=== PATIENT | female | born 1945 | race Caucasian/White ===

== ENCOUNTER → 2016-11-17 | Outpatient (CLI) | payer OTHER ==
[~2016-11-17] MED LIST: ATEN-173 PO; CALC600T9 PO; CALCTAB5 PO; CHOL1CAP57 PO; HYDR0.5T PO; IBUP-1428 PO; MOME200A INH; OMEP40CA41 PO; PRD/1 PO; PRED-301 PO; PRLSR20 PO; VITA100C2 PO; VITA100C4 PO; ZNTT/150 PO
--- NOTE | 2016-11-20 14:25 | MAMMOGRAPHY REPORT ---
BILATERAL DIGITAL SCREENING MAMMOGRAM WITH CAD: 11/17/2016 CLINICAL HISTORY: Routine screening. Patient has no complaints. TECHNIQUE: Current study was also evaluated with a Computer Aided Detection (CAD) system. Bilatera l CC and MLO views were obtained. COMPARISON: Comparison is made to exams dated: 10/19/2015 mammogram, 10/14/2014 mammogram, 10/13/2013 ma mmogram, 09/24/2012 mammogram, 09/21/2011 mammogram, and 09/08/2010 mammogram - [facility] nt. BREAST COMPOSITION: There are scattered areas of fibroglandular density in both breasts. FINDINGS: No suspicious masses, calcifications, or areas of architectural distortion are noted in e ither breast. There has been no significant interval change compared to prior exams. IMPRESSION: ACR BI-RADS CATEGORY 1: NEGATIVE There is no mammographic evidence of malignancy. A 1 year screening mammogram is recommended. The p atient will receive written notification of the results. Approximately 10% of breast cancers are not detected with mammography. A negative mammographic repor t should not delay biopsy if a clinically suggestive mass is present. Radha Szymanski M.D. ah/:11/17/2016 15:39:25 Regulation Supervisor: Hollis STOVALL(Linda)(M), [facility] letter sent: Normal 1/2 BI-RADS Code: ACR BI-RADS Category 1: Negative
== END | disposition home or self-care (01) ==
LOC: C.MAMM 13:34
PROVIDERS: ATTEND Family Medicine
DX: Z12.31 Encounter for screening mammogram for malignant neoplasm of breast (principal)

== ENCOUNTER → 2017-03-27 | Outpatient (CLI) | payer OTHER ==
[~2017-03-27] MED LIST changes: -CALC600T9 PO; -OMEP40CA41 PO; -VITA100C2 PO
--- NOTE | 2017-03-27 14:38 | DIAGNOSTIC IMAGING REPORT ---
(CHEST) THORAX WITHOUT CLINICAL HISTORY: C34.90 Adenocarcinoma of lung COMPARISON STUDY: 02/03/2016 CT DOSE: 188.00 mGy.cm TECHNIQUE: CT of the thorax was performed from the thoracic inlet to the lung bases. Images are reviewed in the axial, sagittal, and coronal planes. IV contrast was not administered for this examination. A dose lowering technique was utilized adhering to the principles of ALARA. FINDINGS: Thyroid: Imaged portions of the thyroid gland are normal in appearance. Thoracic aorta: The thoracic aorta is normal in course and caliber, noting standard 3 vessel arch anatomy. Heart: There are mild coronary artery calcifications. Lungs and pleural spaces: 6 no pleural effusions are visualized. There is pulmonary emphysema. There is a persistent 7 mm right middle lobe pulmonary nodule. There is a new 5 mm left apical pulmonary nodule as visualized in image #27/301. There is an enlarging irregularly marginated solid 13 mm left upper lobe pulmonary nodule as visualized on image #49/31. There is a persistent area of architectural distortion within the left upper lobe demonstrating a 13 mm central nodule which appears slightly larger on the prior study. There is a new 11 mm left upper lobe pulmonary nodule as visualized in image #78/301. There is a 7 mm partially solid and groundglass left upper lobe there is a new 9 mm left upper lobe pulmonary nodule as visualized on image #99/301. There is a new 4 mm left upper lobe point nodule as visualized in image #99/301. No pleural effusions are visualized. Pulmonary nodule as visualized in image #84/301. Mediastinum: There is no pathologic adenopathy by size criteria. Geeta: There is no evidence of pathologic hilar activity given the limitations of a noncontrast study Axilla: Clear. Upper abdomen: Partially visualized upper abdominal viscera is within normal limits. Skeletal structures: There are no lytic or blastic osseous lesions. IMPRESSION: 1. Multiple new and enlarging left upper lobe pulmonary nodules suspicious for multifocal neoplasm/metastatic disease 2. Indeterminate 7 mm right middle lobe pulmonary nodule. Well unchanged in overall size, there has been equivocal slight interval increase in the solid component 3. Emphysema Electronically signed by: Ryland Portillo M.D. 03/27/2017 2:37 PM Dictated Date/Time: 03/27/2017 2:27 PM
== END | disposition home or self-care (01) ==
LOC: C.CTS 14:10
PROVIDERS: ATTEND Internal Medicine Critical Care Medicine
DX: C34.90 Malignant neoplasm of unspecified part of unspecified bronchus or lung (principal); R91.8 Other nonspecific abnormal finding of lung field; J43.9 Emphysema, unspecified

== ENCOUNTER → 2017-04-09 | Outpatient (CLI) | payer OTHER ==
--- NOTE | 2017-04-09 13:04 | DIAGNOSTIC IMAGING REPORT ---
PET/CT HISTORY: LUNG CANCER TECHNIQUE: PET/CT was performed from the base of the skull through the pelvis following the intravenous administration of 9.9 mCi of F18-FDG. Non-contrast CT imaging was performed over the same range without breath-hold for attenuation correction of PET images and anatomic correlation, but not for primary interpretation as it is not of standard diagnostic quality. CT DOSE: COMPARISON: Chest CT 03/27/2017. PET CT 03/08/2016. FINDINGS: HEAD AND NECK: There is no FDG-avid disease or significant lymphadenopathy in the imaged portions of the head and the neck. CHEST: Multiple new and enlarging FDG avid nodules within the left upper lobe consistent with metastatic disease. There are proximal tendon nodules within the left upper lobe. Dominant nodule measures 12 mm and demonstrates an SUV max of 4.8. No FDG avid or enlarged mediastinal or hilar lymph nodes. There is again noted an irregular 7 mm groundglass nodule within the right middle lobe. This may demonstrate faint FDG uptake. The appearance alone is highly suspicious for a malignancy. Emphysema. ABDOMEN/PELVIS: Below the diaphragm, tracer is distributed physiologically in the gastrointestinal and genitourinary tracts. There is no significant lymphadenopathy and no FDG-avid disease. MUSCULOSKELETAL: There is no FDG-avid or destructive bone lesion. IMPRESSION: 1. Multiple new and enlarging FDG avid pulmonary nodules seen within the left upper lobe consistent with metastatic disease. Dominant nodule measures 12 mm. 2. There is again noted an irregular 7 mm groundglass nodule within the right middle lobe. This may demonstrate faint FDG uptake. The appearance alone is highly suspicious for a low-grade malignancy. 3. Emphysema. Electronically signed by: Murray Reese M.D. 04/09/2017 1:03 PM Dictated Date/Time: 04/09/2017 12:45 PM
== END | disposition home or self-care (01) ==
LOC: C.PET 09:39
PROVIDERS: ATTEND Internal Medicine Critical Care Medicine
DX: R91.8 Other nonspecific abnormal finding of lung field (principal); C34.90 Malignant neoplasm of unspecified part of unspecified bronchus or lung; J43.9 Emphysema, unspecified

== ENCOUNTER → 2017-05-04 | Outpatient (CLI) | payer OTHER ==
[~2017-05-04] MED LIST changes: +CALC600T9 PO; +OMEP40CA41 PO; +VITA100C2 PO
--- NOTE | 2017-05-04 09:53 | DIAGNOSTIC IMAGING REPORT ---
CT SCAN OF THE CHEST WITHOUT IV CONTRAST CLINICAL HISTORY: Lung cancer. COMPARISON STUDY: Chest CT scans dated 03/27/2017 and 05/04/1714. PET/CT dated 04/09/2017. TECHNIQUE: CT scan of the thorax was performed from the thoracic inlet to the upper abdomen. Images are reviewed in the axial, sagittal, and coronal planes. IV contrast was not administered for this examination as per the referring clinician. The examination is performed using the navigational protocol. A dose lowering technique was utilized adhering to the principles of ALARA. CT DOSE: 215.33 mGy.cm FINDINGS: Thyroid: Imaged portions of the thyroid gland are normal in size and attenuation. Thoracic aorta: There is mild atherosclerotic calcification of the thoracic aorta, which is normal in caliber and demonstrates standard 3-vessel arch anatomy. Heart: The heart is normal in size and without pericardial effusion. There are coronary artery calcifications. Lungs and pleural spaces: Advanced emphysema is identified. There is no lobar consolidation or pleural effusion. The trachea and central airways are clear. There is a spiculated lesion with surrounding groundglass change in the left upper lobe seen on image #68. This measures 2.4 x 1.3 cm. Surrounding scarring is identified and this may represent lymphangitic spread of tumor versus post treatment change. A 1.7 cm groundglass focus is seen in the left upper lobe on image #91. 4 additional spiculated nodules are seen in the left upper lobe on images #56, #83, #97, and #99. These measure up to 1.3 cm. The nodule seen on image #97 demonstrates central cavitation. An indeterminant 7 mm nodular density seen at the left apex on image #32. An 8 mm spiculated nodule is seen in the right middle lobe along the major fissure on image #172. A 3 mm right upper lobe nodule is seen image #79. A calcified granuloma is identified in the left upper lobe along the major fissure. Mediastinum: There is no mediastinal lymphadenopathy. Geeta: Not well assessed without IV contrast. Axillae: There is no axillary lymphadenopathy. Upper abdomen: Partially visualized upper abdominal viscera is within normal limits. No adrenal lesion is seen. Skeletal structures: The skeletal structures are osteopenic. Advanced degenerative change with anterolisthesis is seen at L3-L4. No lytic or blastic bony lesions are seen. IMPRESSION: 1. Advanced emphysema. No lobar consolidation or pleural effusion is identified. 2. Again seen is a spiculated nodule in the left upper lobe. This has mildly increased in size from 03/27/2017. Surrounding scarring and interstitial thickening could represent lymphangitic spread of tumor or treatment related change. 3. There are least 6 additional left upper lobe lesions identified as detailed above, as well as a right middle lobe lesion. Several of these are spiculated in appearance, and these are unchanged to minimally increased in size from 03/27/2017. These are highly concerning for multifocal pulmonary metastatic disease. 4. No mediastinal lymphadenopathy is identified. Electronically signed by: Librado Jacobs M.D. 05/04/2017 9:52 AM Dictated Date/Time: 05/04/2017 9:38 AM
== END | disposition home or self-care (01) ==
LOC: C.CTS 09:18
PROVIDERS: ATTEND Internal Medicine Critical Care Medicine
DX: C34.90 Malignant neoplasm of unspecified part of unspecified bronchus or lung (principal); R91.8 Other nonspecific abnormal finding of lung field; J86.9 Pyothorax without fistula

== ENCOUNTER 2017-05-08 07:54 | Day surgery (SDC) | payer OTHER ==
[2017-05-04 10:13] VITALS: BMI 21.0
[2017-05-04 10:22] LABS: BASO % 0.4 %; BASO ABS # 0.06 K/uL (0-0.2); COMPLETE YES; HEMATOCRIT 43.1 % (37-47); IG% 0.8 %; LYMPH % 10.3 %; MEAN CELL VOLUME 92.1 fL (80-100); MEAN CORPUSCULAR HEMOGLOBIN 30.3 pg (25-34); MEAN CORPUSCULAR HGB CONC 32.9 g/dl (32-36); MEAN PLATELET VOLUME 10.7 fL (7.4-10.4); MONO % 8.4 %; NEUT % 79.1 %; PLATELET COUNT 253 K/uL (130-400); RED BLOOD COUNT 4.68 M/uL (4.2-5.4); WHITE BLOOD COUNT 13.62 K/uL (4.8-10.8)
[2017-05-04 10:33] LABS: PROTHROMBIN TIME (PATIENT) 10.3 SECONDS (9.0-12.0)
--- NOTE | 2017-05-04 11:08 | PAT Medication Instructions ---
Service Date May 04, 2017. Current Home Medication List Atenolol (Tenormin), 25 MG PO BID Calcium Carbonate-Vitamin D (Calcium + D), 1 TAB PO BID Ibuprofen (Motrin), 800 MG PO TID Omeprazole (Prilosec), 40 MG PO QAM Prednisone (Prednisone), 5 MG PO QAM Prednisone (Prednisone), 2 MG PO QPM Ranitidine (Zantac), 150 MG PO AMHS Vitamin E (Vitamin E 100 Iu), 100 INTER.UNIT PO QPM Medication Instructions For Your Scheduled Surgery - Check with surgeon for instructions: Ibuprofen (Motrin), 800 MG PO TID - Hold the following medications starting 05/04/17: Vitamin E (Vitamin E 100 Iu), 100 INTER.UNIT PO QPM - Hold the following medications the morning of surgery: Ranitidine (Zantac), 150 MG PO AMHS Calcium Carbonate-Vitamin D (Calcium + D), 1 TAB PO BID - Take the following medications the morning of surgery with a sip of water: Atenolol (Tenormin), 25 MG PO BID Omeprazole (Prilosec), 40 MG PO QAM Prednisone (Prednisone), 5 MG PO QAM Prednisone (Prednisone), 2 MG PO QPM - Take the following medications as scheduled the night before surgery: Ranitidine (Zantac), 150 MG PO AMHS Calcium Carbonate-Vitamin D (Calcium + D), 1 TAB PO BID Atenolol (Tenormin), 25 MG PO BID If you have any questions please call us at [phone] or [phone] or [phone]
--- NOTE | 2017-05-04 11:47 | DIAGNOSTIC IMAGING REPORT ---
CERVICAL SPINE 3 VIEWS HISTORY: PREOP, RHEUMATOID ARTHRITIS COMPARISON: None. FINDINGS: The cervical spine is visualized from C1 through the superior endplate of T1. There is no fracture. There is 1.5 mm of anterolisthesis of C3 on C4 and 1 mm of anterolisthesis of C4-C5 on the neutral view. This remains unchanged during extension. However, these areas progressed to 2.7 mm on the flexion view. Disc spaces are preserved. Prevertebral soft tissues and the atlantodens interval are intact. IMPRESSION: Anterolisthesis of C3 on C4 and C4 on C5 as described above which progresses during flexion. Electronically signed by: Murray Reese M.D. 05/04/2017 11:45 AM Dictated Date/Time: 05/04/2017 11:43 AM
[2017-05-04 12:41] LABS: BUN/CREATININE RATIO 16.3 (10-20); CALCIUM 9.5 mg/dl (8.5-10.1); CREATININE 1.02 mg/dl (0.60-1.20); POTASSIUM 4.5 mmol/L (3.5-5.1)
[~2017-05-08] VITALS: Ht 157.5 cm; Wt 52.2 kg
[~2017-05-08 07:54] MED LIST changes: -CALCTAB5 PO; -CHOL1CAP57 PO; -HYDR0.5T PO; -MOME200A INH; -PRLSR20 PO; -VITA100C4 PO
[2017-05-08 08:18] VITALS: BP 136/83; PULSE 69; TEMP 36.8; O2SAT 97; Ht 157.5 cm; Wt 52.2 kg
[2017-05-08] MEDS ORDERED: DEXAMETHASONE SOD INJ 4 MG/ML VIAL ONE ×2 (08:38→10:14)
[2017-05-08] MEDS ORDERED: ONDANSETRON INJ 2 MG/ML 2 ML VIAL ONE ×2 (08:39→10:14)
[2017-05-08] MEDS ORDERED: LIDOCAINE HCL 2% 2 ML VIAL (20MG/ML) ONE (08:39)
[2017-05-08] MEDS ORDERED: FENTANYL CITRATE INJ 50 MCG/1 ML 2 ML VIAL ONE (08:39)
[2017-05-08] MEDS ORDERED: PROPOFOL IV EMULSION 10 MG/ML 20 ML VIAL IV ONE (08:39)
[2017-05-08] MEDS ORDERED: MIDAZOLAM HCL 1 MG/ML 2ML VIAL ONE (08:39)
--- NOTE | 2017-05-08 09:11 | History and Physical ---
History & Physical Date of Service May 08, 2017. History & Physical Reason for EBUS w/ENB: Left upper lobe and right middle lobe PET avid, growing nodules in the setting of history of adenocarcinoma of the lung History of present illness: Patient is a 71-year-old female with adenocarcinoma s/p SBRT treatment who initially was noting pain in 2013 and was found to have a 1 centimeter ground- glass nodule in the left upper lobe at that time. She underwent electro navigational bronchoscopy with biopsy on 10/24/2013, but the procedure was ultimately nondiagnostic. Repeat CT scan then showed mild enlargement of the left upper lobe nodule and repeat navigational bronchoscopy was completed on with pathology noting adenocarcinoma. The patient did undergo SBRT treatment for definitive care. The patient had repeat PET scan completed on which showed no demonstrated full FDG avidity, and therefore was thought to have good response to treatment. Repeat CT scan on 03/27/2017 showed enlarging 13 mm solid nodule in left upper lobe along with multiple other small, new solid and ground-glass nodules. Therefore, it was recommended that the patient have repeat PET scan to evaluate these nodules once again. She was noted to have PET avid lesions in the left upper lobe as well as the right middle lobe and mediastinal and hilar adenopathy with SUV uptake. It was recommended that the patient have endobronchial ultrasound with electromagnetic navigational bronchoscopy for evaluation of possible recurrent adenocarcinoma of the lung. Review of systems: Denies fever, chills, chest pain, productive cough, or pleurisy. Active Problems Abnormal CT scan, lung (R91.8) Abnormal electrocardiogram (R94.31) Acute bronchitis with bronchospasm (J20.9) Adenocarcinoma of lung (C34.90) Ankle joint pain (M25.579) Atopic dermatitis (L20.9) Backache (M54.9) Cerumen impaction (H61.20) Chronic obstructive pulmonary disease (J44.9) Chronic reflux esophagitis (K21.0) Contact dermatitis (L25.9) Fatigue (R53.83) Hearing loss (H91.90) High risk medication use (Z79.899) Hypertension (I10) Joint pain, elbow (M25.529) Leg swelling (M79.89) Leiomyoma of uterus (D25.9) Lower back pain (M54.5) Nicotine dependence (F17.200) Olecranon bursitis of right elbow (M70.21) Osteoarthritis of hip (M16.9) 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) Osteopenia (M85.80) Pain in foot (M79.673) Raynauds phenomenon (I73.00) Rheumatoid arthritis (M06.9) Sacroiliitis (M46.1) Tinnitus of right ear (H93.11) Tubular adenoma of colon (D12.6) Urinary symptom or sign (R39.9) Urinary tract infection (N39.0) Vaginal candidiasis (B37.3) Vaginitis (N76.0) Vulvar cyst (N90.7) Past Medical History History of Cat bite of hand (S61.459A,W55.01XA) History of Cellulitis Of The Right Fifth Toe History of Sprain Of Right Fifth Toe MTP Joint Surgical History History of Bunion Correct W/ Metatarsal Osteotomy Lalo-Siri Proc History of Knee Arthroscopy (Therapeutic) History of Neuroplasty Decompression Median Nerve At Carpal Tunnel History of Oral Surgery Tooth Extraction History of Tonsillectomy History of Total Abdominal Hysterectomy With Removal Of Both Ovaries History of Total Hip Replacement Family History Family history of Alzheimer Disease Family history of Lung Cancer Family history of Colon Cancer Social History Denied: History of Alcohol Use (History) Current every day smoker (F17.200) Denied: History of Drug Use Marital History - Smokes cigarettes (F17.210) Tobacco Use Uses Safety Equipment - Seatbelts Current Meds 1. Natural Vitamin E 200 UNIT Oral Capsule; TAKE 1 CAPSULE DAILY 2. Omeprazole 20 MG Oral Capsule Delayed Release; TAKE 1 CAPSULE BY MOUTH ONE TIME DAILY 3. RaNITidine HCl - 150 MG Oral Tablet; TAKE 1 TABLET BY MOUTH TWO TIMES DAILY 4. Atenolol 25 MG Oral Tablet; TAKE ONE TABLET BY MOUTH TWICE A DAY 5. Caltrate 600+D TABS; Take 1 tablet twice daily 6. Vitamin D3 1000 UNIT Oral Tablet; TAKE 1 TABLET DAILY 7. Ibuprofen 800 MG Oral Tablet; TAKE 1 TABLET 3 times daily 8. PredniSONE 1 MG Oral Tablet; TAKE TWO TABLETS BY MOUTH EVERY EVENING 9. PredniSONE 5 MG Oral Tablet; TAKE ONE TABLET BY MOUTH ONCE DAILY in morning Allergies Augmentin TABS Codeine Derivatives Hydromet SYRP Physical exam: Constitutional General appearance: Abnormal. ~Thin appearing female. KnmqeBvcaznb7Udd NoejiFqdysip7Auqeu WvxqlOulrbvr1Btv IupczMfoavvr17Qdqfo Eyes Conjunctiva and lids: No swelling, erythema or discharge. Pupils and irises: Equal, round and reactive to light. DhdqdHjlbxlr25Luz AfpmfQpukkbl31Zhuwk RpswmMcahlrq61Bjm SbijcWpojays60Oplng GnompUghjuyh56Laa SyvmpPuoedze0Ogwkq Ears, Nose, Mouth, and Throat External inspection of ears and nose: Normal. Oropharynx: Normal with no erythema, edema, exudate or lesions. HwlvrMtiekfv8Wbi GrfedGtjzukk7Koklt EiwmhLacesbv3Ydd SotkoJdkpeyl0Ozyos MvcipNukdfob7Uxd TeavgVvnwulc71Jyjzj ZhxspQqadbhh04Owc KwskwTixwvlj95Cwdtw Pulmonary Respiratory effort: No increased work of breathing or signs of respiratory distress. Auscultation of lungs: Clear to auscultation. IjddzTfqacgl43Qxp UnrpyFaihbpu71Keyos DcxyqMwgntuk03Rdd TntmzOfbupeo79Ynkdy MttsdGiwpric28Urw VhqkkKupsqlv18Btogg Cardiovascular Auscultation of heart: Normal rate and rhythm, normal S1 and S2, without murmurs. Examination of extremities for edema and/or varicosities: Normal. CgeubHifzjqb17Ozd DkeosHypijxh65Sywwa TwlunRpjympl06Enf JwzsuOqavkbr38Ythrm GuikdEabrkdt21Ozl JnuhvGkyhrhu55Tnylg NpgrxOyarsry96Rag EoqcoFtefuze04Fphjk Musculoskeletal Gait and station: Normal. Digits and nails: Normal without clubbing or cyanosis. Inspection/palpation of joints, bones, and muscles: Normal. VuresGjzoewn04Wak KvsszDloqfzn51Ssaiw SojjzWbhhhrm91Wdt JontfMnrighm13Zkxnp EnkchHhffnde41Ixq DuclcPjsooos66Xcnbz RdghyYbtxfjx87Vfy FrvmgVkzsirx04Trptj Skin Skin and subcutaneous tissue: Normal without rashes or lesions. VtynwUjitksu41Gao OmbhxPggvgkd60Jjqmy NtyvjKhdrpgo56Hnz AylgrAemlbgp59Exwsv FpxfoTwyrqoe77Nhc FjoacAbamwbv99Eawqt Neurologic Cranial nerves: Cranial nerves 2-12 intact. Sensation: No sensory loss. YryzjZyfshqr56Ujl PdpnyEzobnki15Boaio RdwmiFzlwxcm27Kxz VmrnxQwsqlvt12Effbm XjdhbSlbnkjh58Klt PwxdcNlyrdcl64Ugokb UfmtsBcrhlma87Fos JrdjtKuxxlsg53Birqd Psychiatric Orientation to person, place, and time: Normal. Mood and affect: Normal. CcwzbGrmkldx62Qkj ExrfqLgjqqyd23Lbdai MdxlgYdjucoe75Tzy KvlxbGghpcjh25Maqdl GvfexXixlhkz68Xcm CompleteMulti-SystemExam (Brief)[id number] Assessment and plan: Patient with FDG avid left upper lobe nodules along with a right middle lobe nodule and mediastinal/hilar adenopathy. She is planned to have EBUS w/ENB today.
[2017-05-08] MEDS ORDERED: FENTANYL CITRATE INJ 50 MCG/1 ML 2 ML VIAL IV PRN (09:15)
[2017-05-08] MEDS ORDERED: EpHEDrine SULFATE INJ 50 MG/ML AMP IV PRN (09:15)
[2017-05-08] MEDS ORDERED: ONDANSETRON INJ 2 MG/ML 2 ML VIAL IV PRN (09:15)
[2017-05-08] MEDS ORDERED: ATROPINE SULFATE 0.1 MG/ML 5ML SYR IV PRN (09:15)
--- NOTE | 2017-05-08 09:36 | History & Physical Bridge Note ---
H&P Re-Evaluation Bridge Note: I have examined the patient, reviewed the History & Physical and in the interval since the performance of the History & Physical I have noted the following changes of clinical significance: No changes noted
[2017-05-08] MEDS ORDERED: EpHEDrine SULFATE 50MG/5ML SYR ONE (10:14)
[2017-05-08] MEDS ORDERED: GLYCOPYRROLATE INJ 0.2 MG/ML VIAL ONE (10:14)
--- NOTE | 2017-05-08 11:45 | DIAGNOSTIC IMAGING REPORT ---
CHEST 1 VIEW FRONTAL CLINICAL HISTORY: Navigational bronchoscopy. Left upper lobe pulmonary mass COMPARISON STUDY: Chest CT dated 05/04/2017 FINDINGS: 2 intraoperative fluoroscopic spot images are provided for interpretation. 3 minutes and 33 seconds of fluoroscopic time was utilized. Fluoroscopic spot images demonstrate a left upper lobe bronchoscopic catheter. IMPRESSION: Fluoroscopic spot images obtained during navigational bronchoscopy area Electronically signed by: Ryland Portillo M.D. 05/08/2017 11:44 AM Dictated Date/Time: 05/08/2017 11:42 AM
--- NOTE | 2017-05-08 11:46 | Bronchoscopy Procedure Note ---
Bronchoscopy Procedure Note Procedure: Flexible-Bronchoscopy, EBUS, Tbbx, GETA Consent: Obtained through the patient placed into the chart Pre-Procedural Dx: Lung Nodule Post-Procedural Dx: Lung Ca (possible Adeno-Ca) Analgesia: GETA Sedation: GETA Procedure: The Olympus video bronchoscope and EBUS scope were used for this procedure Initially the flexible bronchoscope was used for evaluation of the airways. The LMA tube was well positioned in the glottic region Trachea: Visualized portion of the trachea was anatomically within normal limits Ciara: Anatomically within normal limits Right bronchial tree: Right mainstem bronchus: Anatomically within normal limits Right upper lobe: Anatomically within normal limits Bronchus intermedius: Anatomically within normal limits Right middle lobe: Anatomically within normal limits Right lower lobe: Anatomically within normal limits Findings: No significant findings noted Left bronchial tree: Left mainstem bronchus: Anatomically within normal limits Left upper lobe: Anatomically within normal limits Lingula: Anatomically within normal limits Left lower lobe: Anatomically within normal limits Findings: No significant findings noted EBUS/SHYAM: Tbbx Robel Stations: 7: # of passes 3 LUIS FERNANDO: FNA: x5 Cytology [place]: x3 BAL: Tbbx: x5 EBL: 3cc Complications: None Follow-up: [facility]
--- NOTE | 2017-05-08 12:24 | Anesthesiology Progress Note ---
Anesthesia Post Op Note Date & Time May 08, 2017 at 12:24 Vital Signs Pain Intensity: 0 Vital Signs Past 12 Hours Date Time Temp Pulse Resp B/P (MAP) Pulse Ox O2 Delivery O2 Flow Rate FiO2 05/08/17 12:20 67 12 126/90 95 05/08/17 12:10 36.3 67 12 127/87 100 Oxymask 10 05/08/17 12:00 67 12 108/63 100 Oxymask 10 05/08/17 11:50 70 12 94/60 99 Oxymask 10 05/08/17 11:40 36 70 12 94/56 98 Oxymask 10 05/08/17 08:18 36.8 69 20 136/83 (100) 97 Room Air Notes Mental Status: alert / awake / arousable, participated in evaluation Pt Amnestic to Procedure: Yes Nausea / Vomiting: adequately controlled Pain: adequately controlled Airway Patency, RR, SpO2: stable & adequate BP & HR: stable & adequate Hydration State: stable & adequate Anesthetic Complications: no major complications apparent
--- NOTE | 2017-05-08 12:29 | History & Physical Bridge Note ---
H&P Re-Evaluation Bridge Note: I have examined the patient, reviewed the History & Physical and in the interval since the performance of the History & Physical I have noted the following changes of clinical significance: At this time we will not perform the thoracentesis as the patient has multiple septations but will move forward with the Rosie/ENB evaluation for staging and tumor marker acquisition.
[2017-05-08 12:39] VITALS: BP 123/75; PULSE 72; TEMP 36.4; O2SAT 99
[2017-05-08 13:10] VITALS: BP 134/82; PULSE 67; O2SAT 96
[2017-05-08 13:40] VITALS: BP 129/82; PULSE 64; O2SAT 95
--- NOTE | 2017-05-08 13:52 | Discharge Instructions ---
Discharge Instructions Date of Service May 08, 2017. Admission Reason for Admission: Lung Adenocarcinoma, Abnormal Ct Of Lung Discharge Discharge Diagnosis / Problem: Lung adenocarcinoma, Abnormal CT Lung Discharge Goals Goal(s): Diagnostic testing Activity Recommendations Activity Limitations: resume your previous activity . Instructions / Follow-Up Instructions / Follow[place]Up [place] [facility] Current Hospital Diet Patient's current hospital diet: Discharge Diet Recommended Diet: Regular Diet Procedures Procedures Performed: Endobronchial Ultrasound Guided Biopsy; Radial; Electromagnetic Navigational Bronchoscopy; Transbronchial Fine Needle Aspiration; Bronchial Lavage; Cytology brushing Pending Studies Studies pending at discharge: yes List of pending studies: Chest X-Ray Medical Emergencies . Who to Call and When: Medical Emergencies: If at any time you feel your situation is an emergency, please call 911 immediately. . Non-Emergent Contact Non-Emergency issues call your: Primary Care Provider . . "Provider Documentation" section prepared by Itzel Russell. . VTE Core Measure Inpt VTE Proph given/why not?: Treatment not indicated
--- NOTE | 2017-05-08 14:48 | DIAGNOSTIC IMAGING REPORT ---
CHEST ONE VIEW PORTABLE HISTORY: 71 years-old Female s/p EBUS w/ENB status post endobronchial ultrasound COMPARISON: Chest CT 05/04/2017 TECHNIQUE: Portable upright AP view of the chest FINDINGS: Background emphysema with nodular masslike opacities of the left upper lobe measuring up to 1.8 cm redemonstrated. Previously described lingular nodules are not well seen. No postprocedural pneumothorax. Bones are grossly intact. IMPRESSION: 1. No pneumothorax. 2. Emphysema with nodular masslike opacities of the left lung redemonstrated. The above report was generated using voice recognition software. It may contain grammatical, syntax or spelling errors. Electronically signed by: Aleksandr Flower M.D. 05/08/2017 2:47 PM Dictated Date/Time: 05/08/2017 2:33 PM
== END 2017-05-08 14:36 | disposition home or self-care (01) ==
LOC: C.ACU 07:54
PROVIDERS: ATTEND Internal Medicine Critical Care Medicine
DX: C34.12 Malignant neoplasm of upper lobe, left bronchus or lung (principal); J44.9 Chronic obstructive pulmonary disease, unspecified; K21.0 Gastro-esophageal reflux disease with esophagitis; M06.9 Rheumatoid arthritis, unspecified; M19.90 Unspecified osteoarthritis, unspecified site; I10 Essential (primary) hypertension; I73.00 Raynaud's syndrome without gangrene; F17.200 Nicotine dependence, unspecified, uncomplicated; Z68.21 Body mass index [BMI] 21.0-21.9, adult; Z96.641 Presence of right artificial hip joint; Z90.710 Acquired absence of both cervix and uterus; Z79.899 Other long term (current) drug therapy; Z98.890 Other specified postprocedural states; Z98.818 Other dental procedure status; Z90.89 Acquired absence of other organs; Z88.5 Allergy status to narcotic agent; Z88.1 Allergy status to other antibiotic agents; Z80.1 Family history of malignant neoplasm of trachea, bronchus and lung; Z80.0 Family history of malignant neoplasm of digestive organs; Z82.0 Family history of epilepsy and other diseases of the nervous system

== ENCOUNTER → 2017-11-21 | Outpatient (CLI) | payer OTHER ==
[~2017-11-21] MED LIST changes: +RANI150T85 PO; -ZNTT/150 PO
--- NOTE | 2017-11-21 15:05 | MAMMOGRAPHY REPORT ---
BILATERAL DIGITAL SCREENING MAMMOGRAM TOMOSYNTHESIS WITH CAD: 11/21/2017 CLINICAL HISTORY: Routine screening. Patient has no complaints. TECHNIQUE: Breast tomosynthesis in addition to standard 2D mammography was performed. Current study was also evaluated with a Computer Aided Detection (CAD) system. COMPARISON: Comparison is made to exams dated: 11/17/2016 mammogram, 10/19/2015 mammogram, 10/14/2014 mamm ogram, 10/13/2013 mammogram, 09/24/2012 mammogram, and 09/21/2011 mammogram - [facility] BREAST COMPOSITION: There are scattered areas of fibroglandular density in both breasts. FINDINGS: No suspicious masses, calcifications, or areas of architectural distortion are noted in ei ther breast. There has been no significant interval change compared to prior exams. IMPRESSION: ACR BI-RADS CATEGORY 1: NEGATIVE There is no mammographic evidence of malignancy. A 1 year screening mammogram is recommended. The pa tient will receive written notification of the results. Approximately 10% of breast cancers are not detected with mammography. A negative mammographic report should not delay biopsy if a clinically suggestive mass is present. Radha Szymanski M.D. ah/:11/21/2017 10:31:45 [employer]: [employer] [facility]OVALL(Linda)(Umesh), [facility] letter sent: Normal 1/2 BI-RADS Code: ACR BI-RADS Category 1: Negative
== END | disposition home or self-care (01) ==
LOC: C.MAMM 09:07
PROVIDERS: ATTEND Family Medicine
DX: Z12.31 Encounter for screening mammogram for malignant neoplasm of breast (principal)